=== PATIENT | male | born 1975 | race Caucasian/White ===

== ENCOUNTER 2025-01-05 07:26 | Emergency (ER) | payer MEDICAID ==
[2025-01-05 08:11] LABS: AMPHETAMINES SCREEN, URINE POSITIVE (NEGATIVE)
[2025-01-05 08:12] LABS: BUPRENORPHINE SCREEN,URINE NEGATIVE (NEGATIVE); METHADONE SCREEN, URINE POSITIVE (NEGATIVE); METHAMPHETAMINE SCREEN, URINE POSITIVE (NEGATIVE); THC SCREEN,URINE 50 NG/ML POSITIVE (NEGATIVE)
[2025-01-05 08:13] LABS: COCAINE METABOLITES,URINE NEGATIVE (NEGATIVE); OXYCODONE SCREEN,URINE NEGATIVE (NEGATIVE); PCP SCREEN,URINE NEGATIVE (NEGATIVE)
[2025-01-05] MEDS: LORazepam 2 MG/ML SDV IM ONE (08:18)
== END 2025-01-05 08:26 | disposition home or self-care (01) ==
LOC: VM.ED 07:26
DX: F11.23 Opioid dependence with withdrawal (principal); Z79.899 Other long term (current) drug therapy
CPT/HCPCS: 80305-QW; 96372; 99283; 99284; J2060